=== PATIENT | female | born 1935 | race Caucasian/White ===

== ENCOUNTER → 2021-02-03 | Outpatient (CLI) | payer MEDICARE ==
--- NOTE | 2021-02-03 16:59 | RAD ---
XR CHEST 2V History: Reason: / Spl. Instructions: / History: Comparison: None. Findings: Mild diffuse reticular interstitial thickening. No pleural effusion. No consolidation. No pneumothora x. Normal heart size. Surgical clips right upper quadrant. Vascular calcifications. Impression: 1. Mild diffuse reticular interstitial thickening, may relate to chronic interstitial changes. Recom mend comparison with prior imaging studies. Electronically signed by: Gaudencio Palmer DO (02/03/2021 4:57 PM) [id number]
== END ==
LOC: RAD 11:33
PROVIDERS: ATTEND Internal Medicine Critical Care Medicine
DX: R06.02 Shortness of breath (principal)
CPT/HCPCS: 71046

== ENCOUNTER → 2021-03-08 | Outpatient (CLI) | payer MEDICARE ==
--- NOTE | 2021-03-08 11:39 | RAD ---
EXAMINATION: CT Chest Without IV contrast. INDICATION:85 years, Female, interstitial lung disease versus fibrosis. COMPARISON: None. TECHNIQUE: Spiral CT was obtained from the jugular notch through the posterior costophrenic recess. S agittal and coronal reformats were obtained. Exposure: One or more of the following individualized dose reduction techniques were utilized for thi s examination: 1. Automated exposure control 2. Adjustment of the mA and/or kV according to patient size 3. Use of iterative reconstruction technique. FINDINGS: LUNGS/PLEURA: Central airways are patent. Multifocal bilateral patchy areas of mosaic attenuations. D ependent bibasilar subsegmental atelectasis. No bronchiectasis or honeycombing. No significant subple ural reticulations. No focal consolidation, pleural effusion or pneumothorax. Multiple scattered bila teral solid pulmonary nodules, the largest pleural-based in the posterior left lower lobe measures 7 mm (series 6 image 36). MEDIASTINUM: No pathologic mediastinal or hilar adenopathy. The thoracic aorta and pulmonary arteries are normal in caliber. The heart is normal in size. Dense atherosclerotic calcifications of the aort ic and mitral valve emboli No pericardial effusion. Severe calcified coronary atherosclerosis. The vi sualized thyroid and the esophagus are unremarkable. AXILLA/SOFT TISSUE: No supraclavicular or axillary adenopathy. Regional soft tissues are within bairon l limits. UPPER ABDOMEN: Cholecystectomy. Simple appearing 5.7 cm left renal cyst. BONES: No evidence of acute fractures or aggressive osseous lesions. Multilevel degenerative changes in the thoracic spine. IMPRESSION: 1. No radiographic evidence of interstitial lung disease/fibrosis. 2. Multifocal bilateral patchy areas of mosaic reticulations, likely reflecting air trapping. 3. Multiple scattered bilateral solid pulmonary nodules measuring up to 7 mm. Fleischner Society guidelines for management of incidental pulmonary nodule (Radiology 2017): Multipl e solid nodules 6-8 mm: LOW-RISK and HIGH-RISK patient: CT at 3-6 months, then consider CT at 18-24 months. 4. Severe coronary artery atherosclerotic calcifications. Electronically signed by: Rodrigo Walters MD (03/08/2021 11:37 AM) [facility]
== END ==
LOC: CT 10:02
PROVIDERS: ATTEND Internal Medicine Critical Care Medicine
DX: R91.8 Other nonspecific abnormal finding of lung field (principal); I25.10 Atherosclerotic heart disease of native coronary artery without angina pectoris; I34.0 Nonrheumatic mitral (valve) insufficiency; J98.11 Atelectasis; N28.1 Cyst of kidney, acquired; M47.814 Spondylosis without myelopathy or radiculopathy, thoracic region; Z90.49 Acquired absence of other specified parts of digestive tract
CPT/HCPCS: 71250